=== PATIENT | male | born 1980 | race Caucasian/White ===

== ENCOUNTER 2024-09-13 11:54 | Outpatient (CLI) | payer OTHER, SELFPAY | END 2024-09-13 11:55 | disposition home or self-care (01) | PROVIDERS: Visit Provider Family Medicine | DX: E66.9 Obesity, unspecified (principal); I10 Essential (primary) hypertension; Z11.3 Encounter for screening for infections with a predominantly sexual mode of transmission; Z11.59 Encounter for screening for other viral diseases | CPT/HCPCS: 80076; 86592; 86703; 86803; 87340 ==

== ENCOUNTER 2024-10-18 08:50 | Outpatient (CLI) | payer OTHER, SELFPAY ==
[2024-10-18 14:59] LABS: Chlamydia DNA Amplified* NOT DETECTED (No Detected); GC DNA Amplified* NOT DETECTED (No Detected)
== END 2024-10-18 08:51 | disposition home or self-care (01) ==
LOC: LKVREF 08:50
PROVIDERS: PCP Family Medicine; Visit Provider Family Medicine
DX: Z11.3 Encounter for screening for infections with a predominantly sexual mode of transmission (principal)
CPT/HCPCS: 87491; 87591

== ENCOUNTER 2025-04-25 12:59 | Outpatient (CLI) | payer OTHER, SELFPAY | END 2025-04-25 13:00 | disposition home or self-care (01) | PROVIDERS: PCP Family Medicine; Visit Provider Family Medicine | DX: I10 Essential (primary) hypertension (principal); Z12.5 Encounter for screening for malignant neoplasm of prostate; Z13.6 Encounter for screening for cardiovascular disorders | CPT/HCPCS: 80053; 80061; G0103 ==

== ENCOUNTER 2025-05-23 06:38 | Outpatient (CLI) | payer OTHER, SELFPAY ==
--- NOTE | 2025-05-23 08:11 | P.ANES_ITS ---
Anesthesia Charges Start Date/Time Anesthesia Start Date: 05/23/25 Anesthesia Start Time: 07:20 Stop Date/Time Anesthesia Stop Date: 05/23/25 Anesthesia Stop Time: 08:09 Coding CPT Codes CPT Codes: ANES UPR LWR GI NDSC PX - 90485 ([id number]) P3 - PATIENT W/SEVERE SYS DISEASE, QX - CARBIDE POWDER PROCESSOR SVC W/ MD MED DIRECTION, QK - LAUNCH LEADER 2-4 CNCRNT ANES PROC
--- NOTE | 2025-05-23 08:11 | W.ANESCHARGE ---
Anesthesia Charges Start Date/Time Anesthesia Start Date: 05/23/25 Anesthesia Start Time: 07:20 Stop Date/Time Anesthesia Stop Date: 05/23/25 Anesthesia Stop Time: 08:09 Coding CPT Codes CPT Codes: ANES UPR LWR GI NDSC PX - 55701 ([id number]) P3 - PATIENT W/SEVERE SYS DISEASE, QX - INSTRUCTOR OF NURSING SVC W/ MD MED DIRECTION, QK - TALENT SOURCING SPECIALIST 2-4 CNCRNT ANES PROC
--- NOTE | 2025-05-23 10:07 | P.ANES_ITS ---
Anesthesia Charges Start Date/Time Anesthesia Start Date: 05/23/25 Anesthesia Start Time: 07:20 Stop Date/Time Anesthesia Stop Date: 05/23/25 Anesthesia Stop Time: 08:09 Coding CPT Codes CPT Codes: ANES UPR LWR GI NDSC PX - 48788 ([id number]) QK - STRETCH MACHINE OPERATOR 2-4 CNCRNT ANES PROC, QX - CLINICAL RN MANAGER SVC W/ MED DIRECTION, P3 - PATIENT W/SEVERE SYS DISEASE
--- NOTE | 2025-05-23 10:07 | W.ANESCHARGE ---
Anesthesia Charges Start Date/Time Anesthesia Start Date: 05/23/25 Anesthesia Start Time: 07:20 Stop Date/Time Anesthesia Stop Date: 05/23/25 Anesthesia Stop Time: 08:09 Coding CPT Codes CPT Codes: ANES UPR LWR GI NDSC PX - 16989 ([id number]) QK - FLAME BRAZING MACHINE OPERATOR 2-4 CNCRNT ANES PROC, QX - SUBSTATION OPERATOR CHIEF SVC W/ MED DIRECTION, P3 - PATIENT W/SEVERE SYS DISEASE
== END 2025-05-23 06:39 | disposition home or self-care (01) ==
LOC: OP CLINIC 06:40
PROVIDERS: PCP Family Medicine; Visit Provider Internal Medicine
DX: Z12.11 Encounter for screening for malignant neoplasm of colon (principal); D12.3 Benign neoplasm of transverse colon; D12.2 Benign neoplasm of ascending colon; R10.13 Epigastric pain; K21.9 Gastro-esophageal reflux disease without esophagitis; K22.89 Other specified disease of esophagus
CPT/HCPCS: 00813; 43239; 45380; 45385; 88305; J2704; J3010